=== PATIENT | male | born 1945 | race Caucasian/White ===

== ENCOUNTER 2017-04-23 14:27 | Outpatient (CLI) | payer MEDICARE, BC ==
--- NOTE | 2017-04-24 07:53 | RAD ---
THREE VIEWS LUMBAR SPINE: INDICATION: Back pain for 6 months. FINDINGS: There is mild multilevel degenerative change of the lumbar spine without acute compression fracture or subluxation. Vascular calcification of the aorta is seen. There are metallic coils overlying th e pelvis bilaterally. Metallic clips in the right upper quadrant are present. 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 POS: JOSELITO
== END 2017-04-23 14:28 | disposition home or self-care (01) ==
LOC: BURRAD 14:27
PROVIDERS: ATTEND Family Medicine
DX: M54.5 Low back pain (principal); M47.896 Other spondylosis, lumbar region
CPT/HCPCS: 72100